=== PATIENT | female | born 1960 | race Hispanic/Latino ===

== ENCOUNTER 2025-02-06 18:05 | Emergency (ER) | payer MEDICARE, OTHER ==
[~2025-02-06] VITALS: Ht 157.5 cm; Wt 70.8 kg
[2025-02-06] MEDS ORDERED: BACI30OI6 TP (18:34)
--- NOTE | 2025-02-06 18:36 | ERN ---
ED Note History of Present Illness Stated Complaint: RT FOOT BURN WITH BOILING WATER Chief Complaint: FOOT INJURY/PAIN Time Seen by MD: 18:07 Time Seen by Midlevel: 18:07 Dictation: The patient is a 64 -year-old female with history of diabetes who presents to the emergency department with complains of right outer foot burn after she accidentally drop boiling water on herself while at work prior to arrival. Reports she had her TDap yesterday at PCP. Past Medical History Past Medical History: Diabetes-Type II, High Cholesterol, Hypertension Surgical History: Other RN Note Reviewed/Agreed w/PFSH: Yes Review of System Dictation Constitutional: Negative for fever,chills, and weight loss Eyes: Negative for injury, pain,redness, and discharge ENT: Negative for injury,pain or swelling Cardiovascular: Negative for chest pain, palpitations, and edema Respiratory: Negative for shortness of breath, cough, and wheezing, Abdomen/GI: Negative for abdominal pain, nausea, vomiting, diarrhea, and constipation Back: Negative for injury and pain : Negative for injury, bleeding and discharge MS/Extremity: Negative for injury and deformity Skin: Negative for rash, and discoloration positive for burn to right foot Neuro: Negative for headache, weakness, numbness, tingling, and seizure Psych: Negative for suicide ideation, homicidal ideation, and hallucinations Initial Vital Sign VS Vital Signs Date Time Temp Pulse Resp B/P (MAP) Pulse Ox O2 Delivery O2 Flow Rate FiO2 02/06/25 18:07 98.2 74 20 131/74 99 Room Air Physical Exam Dictation Vital Signs reviewed General Appearance: Alert, oriented x 3, no acute distress, well developed, nourished. Head and Face: non-traumatic. Eyes: PERRL, pink conjunctivas, eyelid no trauma, anterior chamber with arcus senilis. Ears: Pinnas intact and no signs of trauma or erythema ear canals clear and no discharge TM no erythema Nose: No discharge, no bleeding. Oropharynx: Mouth normal, tongue pink. pharynx clear,no erythema, tonsils no exudates, no abscesses noted, mucous membrane moist Neck: Supple, non-tender, no thyromegaly, no masses, no JVD, no bruits Breast:Deferred Chest:No tenderness, no crepitus, no paradoxical movement, no retractions Lungs:Clear, well-ventilated, symmetric, no rales, no wheezing, no rhonchi, no stridor, good breath sounds bilaterally Heart: Regular rate, regular rhythm, no murmur, no gallops Vascular: no peripheral edema, Abdomen: Soft, positive bowel sounds, nondistended, no guarding, nontender, no rebound, no masses no hepatomegaly, no splenomegaly, no Arias's sign, no hernias. Rectal: Deferred Genital: Deferred Neurological: Normal speech, motor function intact, sensory function intact Musculoskeletal: Neck nontender, full range of motion, back nontender, full range of motion, Extremities: nontender, full range of motion Skin: Color pink, dry, no turgor, no rash, no lacerations, no abrasions, no contusions.6x6 cm erythema to right outer foot with two 2cm intact blisters noted. Lymphatic: Deferred Results (Laboratory/Radiology) Labs Reviewed?: Yes ED Course ED Course Orders Procedure Category Date Status Time Bacitracin PHA 02/06/25 Logged (Bacitracin) 18:30 Acetaminophen 500mg PHA 02/06/25 Logged Tab (Tylenol 500mg T 18:30 Wound Care (Er) CPOE 02/06/25 Transmitted 18:16 Current Medications Medications (Trade) Dose Ordered Sig/Alexia Route PRN Reason Start Time Stop Time Status Last Admin Dose Admin Acetaminophen (TYLenol 500MG TAB) 1,000 mg ONCE ONCE PO 02/06/25 18:30 02/06/25 18:31 UNV Bacitracin (Bacitracin) 1 each ONCE ONCE TP 02/06/25 18:30 02/06/25 18:31 UNV Vital Signs Date Time Temp Pulse Resp B/P (MAP) Pulse Ox O2 Delivery O2 Flow Rate FiO2 02/06/25 18:07 98.2 74 20 131/74 99 Room Air Medical Decision Making MDM The patient is a 64 -year-old female with history of diabetes who presents to the emergency department with complains of right outer foot burn after she accidentally drop boiling water on herself while at work prior to arrival. Reports she had her TDap yesterday at PCP. 6x6 cm erythema to right outer foot with two 2cm intact blisters noted. Patient will be treated with bacitracin and instructed to follow up with PCP. Patient in no acute distress, nontoxic appearance. Differential diagnosis:thermal burn, first degree burn, cellulitis. Need for hospitalization: Patient does not meet criteria for hospitalization. There are no social concerns with this patient. DX & DISP Disposition: Discharge Departure Impression: Primary Impression: Superficial burn of right foot Additional Impression: Thermal burn Condition: Stable Scripts Bacitracin (Bacitracin) 500 Unit/Gram Oint...g. 1 APPL TP TID for 7 Days, #30 GM 0 Refills apply to affected area(s) Prov: NAFISA SERRANO 02/06/25 Additional Instructions: Please take medications as prescribed. Continue to monitor your wound and monitor for any signs of infection like fevers or increased redness. If these symptoms develop please visit your primary doctor FOLLOW-UP WITH PRIMARY CARE PROVIDER IN 1 TO 2 DAYS. TAKE MEDICATIONS DIRECTED HERE IN THE EMERGENCY ROOM. OKAY TO CONTINUE HOME MEDICATIONS UNLESS OTHERWISE DISCUSSED DURING YOUR VISIT IN THE EMERGENCY ROOM TODAY. RETURN TO Y OUR NEAREST EMERGENCY ROOM IF SYMPTOMS WORSEN OR IF THERE IS NO IMPROVEMENT. CALL 911 IF YOU NEED IMMEDIATE ASSISTANCE. TAKE TYLENOL [id number] NEEDED AND IF NO CONTRAINDICATIONS ARE PRESENT. INCREASE ORAL HYDRATION. A WOUND CULTURE OR URINE CULTURE WAS ORDERED HERE IN THE EMERGENCY ROOM DEPARTMENT PLEASE FOLLOW-UP WITH PRIMARY CARE PROVIDER AND ADVISE THEM TO GET REPEAT PORTS FROM OUR FACILITY. IF YOU HAD ANY CASSANDRA WRAP/SPLINTS THAT WERE APPLIED HERE, PLEASE DO NOT REMOVE THEM UNTIL YOU SEE YOUR PRIMARY CARE OR SPECIALTY. Time of Disposition: 18:34 I have reviewed the case, and I agree with, Diagnosis and Plan NAFISA SERRANO Feb 06, 2025 18:36
[2025-02-06 18:46] VITALS: BP 131/74; PULSE 74; RESP 20; TEMP 98.3; O2SAT 99
[2025-02-06] MEDS: BACITRACIN 1 EACH PACKET TP ONE (19:23)
--- NOTE | 2025-02-06 19:27 | NUR ---
WOUND CLEANED AND MEDICATED
== END 2025-02-06 19:27 | disposition home or self-care (01) ==
LOC: EDH 18:05
DX: T25.221A Burn of second degree of right foot, initial encounter (principal); E11.9 Type 2 diabetes mellitus without complications; E78.00 Pure hypercholesterolemia, unspecified; I10 Essential (primary) hypertension; X12.XXXA Contact with other hot fluids, initial encounter; Y93.89 Activity, other specified; Y92.89 Other specified places as the place of occurrence of the external cause; Y99.8 Other external cause status
CPT/HCPCS: 16020; 99283